=== PATIENT | male | born 1995 | race Caucasian/White ===

== ENCOUNTER 2018-07-25 00:52 | Emergency (ER) | payer OTHER, SELFPAY ==
[2018-07-25 00:53] VITALS: BP 143/90; PULSE 85; RESP 20; TEMP 35.9; O2SAT 99; BMI 32.8
--- NOTE | 2018-07-25 01:05 | RAD_ITS ---
STUDY: X-RAY CHEST REASON FOR EXAM: Male, 22 years old. Chest pain. TECHNIQUE: PA and lateral chest. COMPARISON: None. FINDINGS: The lungs are clear and expanded. There is no demonstrated pleural abnormality. Normal size heart. Normal mediastinum and sally. Normal visualized pulmonary arteries. Normal visualized aortic arch and descending thoracic aorta. Normal visualized thoracic spine. Normal visualized ribs, clavicles, and shoulders. There is no demonstrated abnormality of the visualized soft tissue structures of the upper abdomen. RAD/Chest PA and Lateral IMPRESSION: Normal x-ray examination of the chest. Electronically Signed: Joselo Fritz MD at 1:34 EST , Service support ,
--- NOTE | 2018-07-25 01:05 | EKG12_ITS ---
Test Reason : CP Blood Pressure : / mmHG Vent. Rate : 084 BPM Atrial Rate : 084 BPM P-R Int : 138 ms QRS Dur : 092 ms QT Int : 352 ms P-R-T Axes : 031 043 051 degrees QTc Int : 415 ms Normal sinus rhythm Normal ECG Confirmed by MICHAEL CARDENAS, TRACIE ([id number]), videotape editor KEREN COOPER ([id number]) on 07/27/2018 1:23:50 PM Referred By: MEHNAZ Confirmed By:TRACIE RODRIGUEZ MD
[2018-07-25 01:20] LABS: Absolute Neutrophil Count 6.5 X10^3/uL (2.0-7.7); Basophil# 0.03 X10^3/uL; Basophil% 0.4 % (0-1); Eosinophil# 0.04 X10^3/uL; Eosinophils% 0.5 % (0-5); Hematocrit 47.6 % (40-54); Hemoglobin 16.2 g/dl (13.0-16.5); Lymphocyte % 13.5 % (19-41); Mean Corpuscular Volume 88.1 fL (80-94); Mean Platelet Vol. 9.5 fl (6.2-12.0); Monocyte# 0.51 X10^3/uL; Monocyte% 6.2 % (0-10); Neutrophil # 6.47 X10^3/uL (2.7-7.7); Neutrophil % 79.2 % (47-70); Platelet Count 262 K/mm3 (150-450); RBC Distribution Width CV 13.1 % (11.6-14.6); RBC Distribution Width SD 42.2 fl (35.1-43.9); White Blood Count 8.2 K/mm3 (4.4-11.0)
--- NOTE | 2018-07-25 01:20 | ED.RN ---
NO OLD EKGS IN MUSE
[2018-07-25 01:24] LABS: POSITIVE COUNT NO; POSITIVE DIFFERENTIAL NO; POSITIVE MORPHOLOGY NO
[2018-07-25] MEDS: Ketorolac 30 MG/ML Syringe IV (01:28)
[2018-07-25 01:33] LABS: Anion Gap 5 (5-15); BUN 11 mg/dL (7-18); BUN/Creat Ratio 11.6 RATIO (10-20); Calcium,Total 8.8 mg/dL (8.5-10.1); Chloride 104 mmol/L (98-107); Creatinine, Serum 0.95 mg/dL (0.70-1.30); EST Glomerular Filtration Rate 103 mL/min (>60); Est Glom Filt Rate - Afr Amer 125 mL/min (>60); Glucose 156 mg/dL (74-106); Potassium 4.2 mmol/L (3.5-5.1); Sodium Level 136 mmol/L (136-145)
--- NOTE | 2018-07-25 01:39 | ED.VISSUMM ---
- ER Visit Summary Date of Service: 07/25/18 Chief Complaint: Chest pain History of Present Illness: The patient is a 22 M who was at work tonight lifting boxes when he developed an anterior chest pain. Described as sharp across the middle of his chest. He notes it is very sore to touch. He notes that he developed dizziness and some shortness of breath. States he has a very strong family history which most of the males on his father's side have heart attacks and in their 40s. His father being the last. He does not smoke. Denies any significant medical problems. He states he is feeling better but still has the tenderness in the chest. Physical Examination: Afebrile vital signs are stable Gen: Well-nourished well-developed Head: Normocephalic atraumatic Eyes: Perrl EOMI ENT: TMs clear no rhinorrhea moist mucous membranes Neck: Supple no lymphadenopathy no JVD nontender CVS: Regular rate rhythm no murmurs normal S1-S2 Respiratory: No distress clear to auscultation bilaterally anterior chest wall is tender to palpation reproduces this pain. Abdomen: Soft nontender nondistended normal bowel sounds no masses Back: Nontender Extremity: Nontender no edema Skin: Normal color no rash Neuro: alert orientated ?3 CN II-XII intact normal strength sensation reflexes gait cerebellar Psych: Normal affect normal mood Test Results: EKG sinus at a rate of 84. Chest x-ray showed no acute findings. CBC chemistries troponin were negative. Emergency Department Course and Treatment: Patient received Toradol. ELLEN 0. Patient will follow-up with primary care. Anti-inflammatories at home. Impression: 1. Chest pain This note was generated with [employer] dictation software. It may contain incorrect words, spelling, and punctuation that were not noted in review of the chart prior to signing ED Disposition - Plan for ED Patient: Disposition: Home or Assisted Living Chief Complaint: Chest Pain Instructions: ED Chest Pain Atypical Unkn Cause Referrals: René Bowman MD [STAFF PHYSICIAN] -
--- NOTE | 2018-07-25 01:42 | ED.DCSUM_ITS ---
- ER Visit Summary Date of Service: 07/25/18 Chief Complaint: Chest pain History of Present Illness: The patient is a 22 M who was at work tonight lifting boxes when he developed an anterior chest pain. Described as sharp across the middle of his chest. He notes it is very sore to touch. He notes that he developed dizziness and some shortness of breath. States he has a very strong family history which most of the males on his father's side have heart attacks and in their 40s. His father being the last. He does not smoke. Denies any significant medical problems. He states he is feeling better but still has the tenderness in the chest. Physical Examination: Afebrile vital signs are stable Gen: Well-nourished well-developed Head: Normocephalic atraumatic Eyes: Perrl EOMI ENT: TMs clear no rhinorrhea moist mucous membranes Neck: Supple no lymphadenopathy no JVD nontender CVS: Regular rate rhythm no murmurs normal S1-S2 Respiratory: No distress clear to auscultation bilaterally anterior chest wall is tender to palpation reproduces this pain. Abdomen: Soft nontender nondistended normal bowel sounds no masses Back: Nontender Extremity: Nontender no edema Skin: Normal color no rash Neuro: alert orientated ?3 CN II-XII intact normal strength sensation reflexes g ait cerebellar Psych: Normal affect normal mood Test Results: EKG sinus at a rate of 84. Chest x-ray showed no acute findings. CBC chemistries troponin were negative. Emergency Department Course and Treatment: Patient received Toradol. ELLEN 0. Patient will follow-up with primary care. Anti-inflammatories at home. Impression: 1. Chest pain This note was generated with [employer] dictation software. It may contain incorrect words, spelling, and punctuation that were not noted in review of the chart prior to signing ED Disposition - Plan for ED Patient: Disposition: Home or Assisted Living Chief Complaint: Chest Pain Instructions: ED Chest Pain Atypical Unkn Cause Referrals: René Bowman MD [STAFF PHYSICIAN] -
[2018-07-25 02:02] VITALS: BP 129/88; PULSE 82; RESP 27; O2SAT 100
== END 2018-07-25 02:18 | disposition home or self-care (01) ==
PROVIDERS: Emergency Provider Emergency Medicine
DX: R07.9 Chest pain, unspecified (principal); R06.00 Dyspnea, unspecified; Z82.49 Family history of ischemic heart disease and other diseases of the circulatory system; R42 Dizziness and giddiness; R06.02 Shortness of breath
CPT/HCPCS: 71046; 80048; 84484; 85025; 93005; 96374; 99285; A4216

== ENCOUNTER → 2018-11-09 12:31 | Outpatient (CLI) | payer SELFPAY ==
--- NOTE | 2018-11-09 12:38 | MRI_ITS ---
STUDY: MRI BRAIN WITH AND WITHOUT CONTRAST REASON FOR EXAM: Male, 22 years old. Dizziness and right ear tinnitus TECHNIQUE: Standardized multiplanar fat and water weighted pulse sequences were obtained. Gadavist 10 IV was administered for the contrast portion of the examination. COMPARISON: None. FINDINGS: Normal size of the ventricles and extra-axial spaces for the patient's age. Normal white matter tracts of the supratentorial brain. Normal bilateral basal ganglia. Normal thalami. There is no extra-axial fluid accumulation. Normal flow voids within the major intracranial circulation suggesting patency by spin echo criteria. Normal venous enhancement. There is no enhancing intra-axial or extra-axial abnormality. Normal sella turcica, pituitary gland, infundibular stalk, optic chiasm and hypothalamus. Normal tectal plate and pineal gland. Normal midbrain, marybel and medulla. Normal cerebellum. Normal basal cisterns. Normal bilateral temporal bones. Normal bilateral internal auditory canals. No demonstrated orbital abnormality, within the constraints of a routine brain study. Minor mucosal thickening of the ethmoid air cells. Normal calvarium and skull base. Normal visualized soft tissue structures. Normal visualized upper cervical spine. MRI/Brain W/WO Contrast IMPRESSION: Normal unenhanced and enhanced MRI of the brain. No evidence for acoustic or vestibular schwannoma Minor bilateral ethmoid sinus disease Electronically Signed: Chris Alcaraz MD at 23:21 EST , Service support ,
== END ==
LOC: MRI 12:32
PROVIDERS: Referring Provider Otolaryngology; Visit Provider Otolaryngology
DX: R42 Dizziness and giddiness (principal)
CPT/HCPCS: 70553; A9585